=== PATIENT | male | born 1985 | race Hispanic/Latino ===

== ENCOUNTER → 2017-12-31 07:54 | Outpatient (CLI) | payer OTHER, SELFPAY ==
--- NOTE | 2017-12-31 08:05 | CT_ITS ---
STUDY: CT SCAN WRIST LEFT REASON FOR EXAM: Male, 32 years old. Pain at the base of the thumb following injury. RADIATION DOSAGE (If Supplied By Facility): CTDIvol = ( 24.58 ) mGy, DLP = ( 480.71 ) mGycm. Individualized dose optimization techniques were used for this CT.? TECHNIQUE: Multiple axial tomographic images of the wrist joint were obtained without intravenous contrast demonstration. Sagittal and coronal reconstruction was obtained as well. COMPARISON: None. FINDINGS: There is evidence of an old avulsion fracture of the ulnar styloid. Normal anatomic alignment of the carpal bones. There is no evidence of fracture or dislocation. No soft tissue mass is seen. CT/Extremity Upper without Contra IMPRESSION: Old avulsion fracture of the ulnar styloid. No acute abnormality is seen. Electronically Signed: Alexis Yoon MD at 9:39 EDT Tel [phone], Service support ,
== END ==
PROVIDERS: Visit Provider Specialist
DX: S63.592A Other specified sprain of left wrist, initial encounter (principal)
CPT/HCPCS: 73200